=== PATIENT | female | born 1950 | race Caucasian/White ===

== ENCOUNTER 2018-05-31 07:48 | Day surgery (SDC) | payer MEDICARE, MEDICAID ==
[2018-05-31 09:37] VITALS: BMI 29.0
[2018-05-31] MEDS ORDERED: Propofol 10 mg/ml Inj (20 ML) ONE (09:48)
--- NOTE | 2018-05-31 09:54 | CP.SDSHP ---
Same Day Surgery H & P - History Proposed Procedure: heartburn. constipation. screening for colon cancer. h/o breast cancer - Previous Medical/Surgical History Cardiac: Hypertension, Other (hyperlipidemia, ) Endocrine/Metabolic: Diabetes, Obesity Neuro: Backaches Misc: Other (breast cancer, osterporosis, DJD) Previous Surgical History: Right mastectomy. Bladder suspension - Allergies Allergies: Allergies No Known Allergies Allergy (Verified 05/31/18 09:37) - Physical Exam Vital Signs: Vital Signs 05/31/18 09:25 Temperature 96.9 F L Pulse Rate 84 Respiratory 16 Rate Blood Pressure 131/68 O2 Sat by Pulse 99 Oximetry Mental Status: Alert & Oriented x3 Neuro: WNL Heart: WNL Lungs: WNL GI: WNL - {Optional Preform as Required} Breast: Other (R Mastectomy) - Impression Impression: heartburn. constipation. screening for colon cancer. h/o breast cancer Pt. Evaluated Today:Candidate for Anesthesia & Procedure: Yes - Date & Time Date: 05/31/18 Time: 09:56 Short Stay Discharge - Short Stay Discharge Admitting Diagnosis/Reason for Visit: SCREENING / HEARTBURN / CHANGE IN BOWEL HABIT Disposition: HOME/ ROUTINE
[2018-05-31] MEDS ORDERED: Pantoprazole 40 mg EC Tab PO STA (09:57)
[2018-05-31] MEDS ORDERED: Lactated Ringer's 500 ML IV ONE (09:59)
[2018-05-31] MEDS ORDERED: Labetalol 25mg/5ml Syringe IVP STA (11:29)
[2018-05-31] MEDS ORDERED: Labetalol 25mg/5ml Syringe ONE (11:32)
[2018-05-31] MEDS ORDERED: Pantoprazole 40 mg EC Tab PO ONE (11:45)
[2018-05-31 12:15] VITALS: RESP 16
[2018-05-31 12:16] VITALS: BP 154/68; O2SAT 97
[2018-05-31 12:35] VITALS: PULSE 76; TEMP 97.5
== END 2018-05-31 12:31 | disposition home or self-care (01) ==
LOC: C.ENDO 07:48
PROVIDERS: ATTEND Internal Medicine Gastroenterology
DX: Z12.11 Encounter for screening for malignant neoplasm of colon (principal); D17.79 Benign lipomatous neoplasm of other sites; K64.1 Second degree hemorrhoids; K21.9 Gastro-esophageal reflux disease without esophagitis; K29.50 Unspecified chronic gastritis without bleeding; B96.81 Helicobacter pylori [H. pylori] as the cause of diseases classified elsewhere; Z85.3 Personal history of malignant neoplasm of breast; I10 Essential (primary) hypertension; E78.49 Other hyperlipidemia; E66.9 Obesity, unspecified; E11.9 Type 2 diabetes mellitus without complications
CPT/HCPCS: 43239; 45380; 82948; 88305; 88312; 88342; J2001; J2704; J7120

== ENCOUNTER 2018-10-21 08:10 | Emergency (ER) | payer MEDICARE, MEDICAID ==
[2018-10-21 08:10] VITALS: BMI 29.0
[2018-10-21 08:22] VITALS: TEMP 98.4; O2SAT 99
--- NOTE | 2018-10-21 09:04 | C.PDOC ---
History Of Present Illness 68 year old female presents to ED with complaint of right-sided neck pain and right upper shoulder pain or the past 3 days. Patient reports sudden onset of pain that is worse with movement. Patient trauma, weakness, numbness, fever, and rash. Time Seen by Provider: 10/21/18 08:31 Chief Complaint (Nursing): Medical Clearance History Per: Patient History/Exam Limitations: no limitations Onset/Duration Of Symptoms: Days (3) Current Symptoms Are (Timing): Still Present Past Medical History Reviewed: Historical Data, Nursing Documentation, Vital Signs Vital Signs: Last Vital Signs Temp 98.4 F 10/21/18 08:20 Pulse 92 H 10/21/18 08:20 Resp 20 10/21/18 08:20 BP 144/81 10/21/18 08:20 Pulse Ox 99 10/21/18 08:20 - Medical History PMH: Gastritis, HTN, Hypercholesterolemia, Osteoporosis Denies: Fractures, Chronic Kidney Disease Surgical History: Denies: Pacemaker Family History: States: Unknown Family Hx - Social History Hx Alcohol Use: No Hx Substance Use: No - Immunization History Hx Tetanus Toxoid Vaccination: Yes Hx Influenza Vaccination: Yes Hx Pneumococcal Vaccination: Yes Review Of Systems Constitutional: Negative for: Fever, Chills, Weakness Musculoskeletal: Positive for: Neck Pain (right-sided), Shoulder Pain (right upper shoulder) Neurological: Negative for: Weakness, Numbness, Dizziness Physical Exam - Physical Exam Appears: Non-toxic, No Acute Distress Skin: Normal Color, Warm, Dry Head: Atraumatic, Normacephalic Neck: Other (moderate swelling to the right paracervical area of the neck, pain with turning to the right side) Chest: Symmetrical, No Deformity Cardiovascular: Rhythm Regular, No Murmur Respiratory: No Accessory Muscle Use Extremity: Capillary Refill (<2 seconds), Other (muscle spasm to the right trapezius muscle) Pulses: Left Radial: Normal, Right Radial: Normal Neurological/Psych: Oriented x3, Normal Speech, Normal Cognition ED Course And Treatment O2 Sat by Pulse Oximetry: 99 (in RA) Medical Decision Making Medical Decision Making: Plan: Decadron IM Flexeril PO Toradol IM Disposition - Disposition Referrals: Bertram Posada MD [Non-Staff] - Disposition: HOME/ ROUTINE Disposition Time: 10:05 Condition: STABLE Additional Instructions: Follow up with the medical doctor within 1-2 days. Return if worsened. Prescriptions: Diazepam [Valium] 2 mg PO TID #21 tab Naproxen 375 mg PO BID #20 tablet predniSONE [Prednisone] 20 mg PO BID #10 tab Instructions: Torticollis (DC) Forms: [facility] ([place]) - Clinical Impression Clinical Impression: Torticollis - PA / FINISHER OPERATOR / Resident Statement MD/DO has reviewed & agrees with the documentation as recorded. (Meri Albrecht) - Scribe Statement The provider has reviewed the documentation as recorded by the Scribe (Meri Albrecht) All medical record entries made by the Scribe were at my direction and personally dictated by me. I have reviewed the chart and agree that the record accurately reflects my personal performance of the history, physical exam, medical decision making, and the department course for this patient. I have also personally directed, reviewed, and agree with the discharge instructions and disposition.
[2018-10-21] MEDS ORDERED: Dexamethasone 4 mg/1 ml IM STA (09:22)
[2018-10-21] MEDS ORDERED: Dexamethasone 4 mg/1 ml ONE (09:39)
[2018-10-21 10:22] VITALS: BP 100/67; PULSE 90; RESP 18
== END 2018-10-21 10:24 | disposition home or self-care (01) ==
LOC: C.ER 08:10
DX: M43.6 Torticollis (principal)
CPT/HCPCS: 96372; 99282; J1100; J1885